=== PATIENT | male | born 1930 | race Caucasian/White ===

== ENCOUNTER 2016-06-10 13:52 | Outpatient (CLI) | payer MEDICARE, OTHER | END 2016-06-10 13:53 | disposition home or self-care (01) | LOC: NAVSJIPCSP 13:52 | PROVIDERS: ATTEND Family Medicine | DX: L03.116 Cellulitis of left lower limb (principal) | CPT/HCPCS: 87070; 87205 ==

== ENCOUNTER 2016-08-08 09:22 | Inpatient (IN) | payer MEDICARE ==
[2016-08-08 09:55] LABS: #Basophils 0.1 thou/uL (0.0-0.2); #Lymphocytes 2.2 thou/uL (1.20-3.40); #Monocytes 0.6 thou/uL (0.11-0.59); #Neutrophils 6.2 thou/uL (1.40-6.50); %Eosinophils 0.3 % (0.0-10.0); %Lymphocytes 24.4 % (21.0-51.0); %Monocytes 6.8 % (0.0-10.0); %Neutrophils 67.5 % (42.0-75.0); Mean Corpuscular HGB CONC 31.5 g/dL (32.0-36.0); Mean Corpuscular Volume 95.1 fl (80.0-94.0); Platelet Count 234 thou/uL (130-400); RBC Distribution Width 14.6 % (11.5-14.5); Red Blood Cell (RBC) Count 5.02 mill/uL (4.70-6.10); White Blood Cell (WBC) Count 9.1 thou/uL (4.8-10.8)
[2016-08-08 10:16] LABS: ALT (SGPT) 33 U/L (0-55); AST (SGOT) 34 U/L (5-34); Albumin 3.5 g/dL (3.4-4.8); Alkaline Phosphatase 70 U/L (40-150); Anion Gap 17 mmol/L (10-20); BUN (Urea Nitrogen) 28 mg/dL (8.4-25.7); Bilirubin, Total 1.1 mg/dL (0.2-1.2); CK (CPK) 29 U/L (30-200); Calc. Creatinine Clearance 0 mL/min (70-130); Calcium 9.8 mg/dL (7.8-10.44); Carbon Dioxide 27 mmol/L (23-31); Chloride 102 mmol/L (98-107); Estimated GFR-MDRD 43; Globulin 4.3 g/dL (2.4-3.5); Glucose 128 mg/dL (83-110); Protein, Total 7.8 g/dL (5.8-8.1); Sodium 141 mmol/L (136-145)
[2016-08-08 10:23] LABS: CKMB 1.8 ng/mL (0-6.6); Troponin I 0.037 ng/mL (< 0.028)
[2016-08-08] MEDS ORDERED: Furosemide 40 MG/4 ML VIAL ONE (11:01)
--- NOTE | 2016-08-08 11:30 | RAD ---
AP VIEW OF CHEST: Date: 08/08/16 INDICATION: Shortness of breath. COMPARISON: Prior exam dated 06/13/16. FINDINGS: There is persistent cardiomegaly. Chronic lung changes are similar. Chronic osseous changes are baldev lar. No pleural effusion or pneumothorax is evident. IMPRESSION: Stable cardiomegaly and chronic lung changes. No definite acute cardiopulmonary abnormality. POS: [facility]
[2016-08-08] MEDS ORDERED: Acetaminophen 500 MG TAB PO PRN ×2 (18:55→20:50)
[2016-08-08] MEDS ORDERED: Carvedilol 25 MG TAB PO SCH ×2 (19:30→21:00)
[2016-08-08] MEDS ORDERED: guaiFENesin ER 600 MG TAB PO PRN (20:50)
[2016-08-08] MEDS: Apixaban 5 MG TAB PO SCH (20:51)
[2016-08-08] MEDS: Atorvastatin Calcium 10 MG TAB PO SCH (20:51)
[2016-08-08] MEDS ORDERED: Apixaban 5 MG TAB PO SCH (21:00)
[2016-08-08] MEDS ORDERED: Furosemide 40 MG/4 ML VIAL SLOW IVP SCH (21:00)
[2016-08-08] MEDS ORDERED: Atorvastatin Calcium 40 MG TAB PO SCH (21:00)
--- NOTE | 2016-08-09 05:21 | HP ---
DATE OF ADMISSION: 08/08/2016 DATE OF HISTORY AND PHYSICAL: 08/08/2016 HISTORY OF PRESENT ILLNESS: Mr. Cote is a very pleasant, 86-year-old, white male that presents to the ER with a several day history of dyspnea on exertion, shortness of breath and just stating that he just cannot catch his breath. He states that over the last several days he has gotten much short of breath, and when he lays down in bed, he cannot rest because he is gasping for breath, he has to sit up. He also states that when he walks, he walks more than 20 feet, he gets very short of breath. Patient was seen in the ER and found to be in atrial fibrillation with RVR. He did bring a list of his medications, but I am not sure if he is taking them all and he is a little bit slow and at times gets very confused. I did see him about 2 weeks after discharge from the rehabilitation to go over all his medicines, although, at that time he forgot his medicines. He did bring them in, he did no t remember, which ones he was taking. I was able to get a list and I added Lasix 20 along with pota ssium 20. At that time, he is supposed to see me for followup, but he has not made it back in yet. Nonetheless, the patient was seen in the ER, was determined to have atrial fibrillation with RVR. He was also short of breath and was started on some IV Lasix and urinated quite a bit. His pulse is down at this time, he states he is breathing much better and he is feeling much better. He states he is not short of breath as he was. PAST MEDICAL HISTORY: Significant for recent history of admission to [facility] with atria l fibrillation with RVR and a stroke. Also, was determined to have some ischemic cardiomyopathy wit h an ejection fraction I believe 35%-40%. Patient has also had: 1. Acute on chronic systolic congestive heart failure. 2. Hypertension. 3. Ischemic cardiomyopathy. 4. Gastroesophageal reflux disease. 5. Cerebrovascular accident due to the embolism, left cerebral artery. 6. Chronic renal disease stage III with a GFR between 30 and 59. 7. Hypercholesterolemia. 8. Benign prostatic hypertrophy without any lower urinary tract symptoms at this time. 9. Osteoporosis. 10. Allergic rhinitis. PAST SURGICAL HISTORY: Reveals patient has had TURP and he had colectomies for some type of infecti on in the distant past. He has had cardiac stents by Dr. Faustin and he had left hip ORIF. Patient's last flu vaccine was 01/17/2016, although, he is not sure if he is up-to-date with his Pne umovax. FAMILY HISTORY: His father at age 76 of congestive heart failure and the patient's mother at the age of 58 of breast cancer. Patient had a sister that at age 77 of coronary artery dis ease. SOCIAL HISTORY: The patient has not been a smoker, he does not drink, he does not use any drugs. Dann montoya is . He has 2 children, but one of his sons has already from HIV. The patient is a retired schneider, has been for about 3 years. Patient has one son who lives in [place]. MEDICATIONS: Include the following, 1. Eliquis 2.5 mg 1 p.o. b.i.d. 2. Enteric coated aspirin 81 mg daily. 3. Lipitor 40 mg each day at bedtime. 4. Benazepril 20 mg p.o. daily. 5. Coreg 12.5 mg twice a day, although the patient was taking half a pill twice a day at home. 6. Lasix 20 mg daily. 7. Potassium chloride 8 mEq daily. 8. Finasteride 5 mg each day. 9. Protonix 40 mg each day. ALLERGIES: The patient has no known drug allergies. CODE STATUS: The patient is a FULL CODE. REVIEW OF SYSTEMS: Reveal the patient not had any fever, chills, not had any night sweats. He just had increasing fatigue and shortness of breath whenever he moves around. He denies any headaches, change in eyes or change in his hearing. Denies any cough, cold, congestion. As far as upper respi ratory problems, he states he does get really short of breath when he moves around or exerts himself at all. He does have real garden and he really cannot even make it out to the garden. He is afrai d to go outside by himself because he is afraid that he will get too weak and would not be able to m subha it back again. He states that he feels his heart jumping all the time and that is not regular l diann it used to be before he had a stroke, before he went to the hospital 2 months ago. He states he has been urinating quite frequently, but he tends to drink more liquids. He has not been on a rest ricted water diet. He states he has some arthritis, but he states his memory is not as good. He ju st cannot remember anything that he needs to do including taking his medications and sometimes he fo rgets to make phone calls to follow up with his doctor's appointments and forgets to take his medica tions. He does have a helper, a electronics engineer, who comes by and who actually tries to organize his medi cine and make sure he does best he can, but he is somewhat mentally challenged. PHYSICAL EXAMINATION: GENERAL: This is a well developed, well nourished, very pleasant, white male, somewhat confused at times, especially by his medications, states he is feeling much better, in no apparent distress at t his time. HEENT: Reveals normocephalic, nontraumatic cranium. Pupils are equal, round and reactive. Nose an d throat are moist. NECK: Supple, without mass, nodes or bruits. He has kind of a fat neck and that we were not able t o appreciate any jugular venous distention at this time. LUNGS: The chest is clear in the upper lobes, some early crackles in the bases still noted. HEART: Revealed a very irregularly irregular rate and rhythm indicative of atrial fibrillation, and when he was in the ER, Dr. Vaca states that he was in RVR. ABDOMEN: Obese, soft, nontender, without organomegaly. Normal bowel sounds are noted. No rebound or guarding is noted. : Deferred. The patient states he has been urinating really a lot since he came from the ER. EXTREMITIES: Reveal trace to +1 edema, he states that it is down significantly from yesterday. He states since he has been peeing a lot, his swelling has gone down. LABORATORY DATA: Reveal his white count is 9100 with hemoglobin 15.0, hematocrit 47.7, platelet cou nt 234,000. Sodium is 141, potassium 5.0, chloride is 102, carbon dioxide 27. His BUN is 28. His creatinine is 1.58, he generally runs between 1.39 and 1.81, so he is actually doing pretty well. He has had leora er enzymes, amylase is up, but his AST is 34 and ALT is 33 at this time. Of note, his troponin is 0 .037. His BNP is 2590. ASSESSMENT: 1. Acute on chronic systolic congestive heart failure. 2. Atrial fibrillation with rapid ventricular response, now is rate controlled, not sure that the p atient has actually been taking his carvedilol, and now, he has been taking a half, he has been spli tting his pills in half, so they last longer. 3. Hypertension. 4. Volume overload. 5. Cardiomyopathy. 6. Hyperlipidemia. 7. Gastroesophageal reflux disease. 8. Benign prostatic hypertrophy. 9. Osteoporosis. 10. Coronary artery disease. 11. Allergic rhinitis. PLAN: 1. We will gradually diurese this patient. We have increased his carvedilol from 6.25 to 12.5. If his blood pressure tolerates it, we will go up to 25 b.i.d. We will follow his serial beta natriur etic peptides. 2. We will continue to treat him clinically and he may need to be admitted to the hospital or event dago transferred to [facility] where his battery filler, Dr. Eduar Faustin practices. Nonetheless, we will continue him in office over the evening and make another decision about what to do tomorrow. I spent over an hour and a half going over the patient's history and physical, medications, etc.
[2016-08-09 05:35] LABS: Band 2 % (5-11); Hemoglobin 14.5 g/dL (14.0-18.0); Lymphocytes 28 % (21-51); MDiff Complete? YES; Mean Corpuscular HGB CONC 32.9 g/dL (32.0-36.0); Mean Corpuscular Hemoglobin 30.8 pg (27.0-31.0); Mean Corpuscular Volume 93.8 fl (80.0-94.0); Mean Platelet Volume 8.1 fL (7.4-10.4); Monocytes 8 % (0-10); Neutrophil 62 % (42-75); PLT Morphology Comment Appears Adequate; Platelet Count 210 thou/uL (130-400); RBC Distribution Width 14.4 % (11.5-14.5); RBC Morphology Normal; Red Blood Cell (RBC) Count 4.69 mill/uL (4.70-6.10); White Blood Cell (WBC) Count 8.7 thou/uL (4.8-10.8)
[2016-08-09 05:42] LABS: Anion Gap 16 mmol/L (10-20); BUN (Urea Nitrogen) 24 mg/dL (8.4-25.7); Calc. Creatinine Clearance 44 mL/min (70-130); Calcium 9.2 mg/dL (7.8-10.44); Carbon Dioxide 28 mmol/L (23-31); Chloride 100 mmol/L (98-107); Estimated GFR-MDRD 49; Glucose 101 mg/dL (83-110); Sodium 140 mmol/L (136-145)
[2016-08-09] MEDS ORDERED: Non-Formulary Item 1 EACH (Multivitamin [Multi-Vitamin Daily] 1 TABLET) PO SCH (09:00)
[2016-08-09] MEDS ORDERED: Finasteride 5 MG TAB PO SCH (09:00)
[2016-08-09] MEDS ORDERED: UBIDECARENONE PO SCH (09:00)
[2016-08-09] MEDS ORDERED: VIT E ACETATE PO SCH (09:00)
[2016-08-09] MEDS ORDERED: Non-Formulary Item 1 EACH (Potassium Chloride [Potassium Chloride] 8 MEQ) PO SCH (09:00)
[2016-08-09] MEDS: Carvedilol 25 MG TAB PO SCH ×2 (09:15→17:38)
[2016-08-09] MEDS: Potassium Chloride 8 MEQ TAB PO SCH (09:16)
[2016-08-09] MEDS: Aspirin 81 mg Enteric Coated Tablet PO SCH (09:16)
[2016-08-09] MEDS: Apixaban 5 MG TAB PO SCH ×2 (09:16→21:10)
[2016-08-09] MEDS: Finasteride 5 MG TAB PO SCH (09:17)
[2016-08-09] MEDS: Multivitamin W/ Minerals 1 TAB PO SCH (09:17)
[2016-08-09] MEDS: Furosemide 20 MG TAB PO SCH (09:17)
[2016-08-09] MEDS: Hydrochlorothiazide 25 MG TAB PO SCH (09:17)
[2016-08-09] MEDS: Atorvastatin Calcium 10 MG TAB PO SCH (21:10)
--- NOTE | 2016-08-09 22:22 | PRG ---
DATE OF SERVICE: 08/09/2016 SUBJECTIVE: Mr. Cote is a very pleasant 86-year-old white male that presented to the ER with signi ficant dyspnea on exertion, shortness of breath, and 2-3 pillow orthopnea. He was given some IV Las ix and seemed to do much better. He was admitted to the hospital and found to have a BNP greater th an 2500. This morning he states he feels about 75% better. States he started to sleep very well last night. Because he still fearing is unable to breathe, but he was propped up in bed. He has no complaints this morning and he says his breakfast was excellent. OBJECTIVE: VITAL SIGNS: Today revealed blood pressure of 119/90, pulse 93, respirations 18, O2 sat 95%, temper ature 97.6. GENERAL: This is a well-developed, well-nourished, very pleasant, obese white male in no apparent d istress at this time. HEENT: Reveals normocephalic, nontraumatic cranium. Pupils are equally round and reactive. Extrao cular movements intact. Nose and throat are slightly dry. NECK: Supple, without masses, nodes or bruits. CHEST: Clear to auscultation. Patient has some minimal rales in the bases that tend to clear with cough. HEART: Irregularly irregular rate and rhythm, indicative of atrial fib. ABDOMEN: Obese, soft, nontender without organomegaly. Normal bowel sounds are noted. No rebound o r guarding is noted. GENITOURINARY: Deferred. EXTREMITIES: Revealed 1+ edema, which is significantly down from yesterday. LABORATORY DATA: This morning revealed a white count down to 8700 with hemoglobin 14.5, hematocrit 44.0, platelet count is 210,000. His electrolytes reveals sodium 140, potassium 4.0, chloride 100, carbon dioxide 28 with a BUN of 24, creatinine 1.38, which is much improved from 1.53 yesterday. Hi s GFR is 43 yesterday and 49 today. His blood sugar this morning is 101. His BNP was down from 259 2 to 2573, which is minimal, but some improvement. ASSESSMENT: 1. [id number] congestive heart failure. 2. Atrial fibrillation with rapid ventricular response in the ER, now is rate controlled. We have increased his carvedilol. 3. Hypertension. 4. Volume overload. 5. Cardiomyopathy. 6. Hyperlipidemia. 7. Gastroesophageal reflux. 8. Benign prostatic hypertrophy. 9. Osteoporosis. 10. Coronary artery disease. 11. Allergic rhinitis. PLAN: 1. Continue to gently diureses the patient. 2. Continue to keep his carvedilol at 12.5 if his blood pressure tolerates it. If he is able incre ase it to 25. 3. Follow him clinically. 4. If the patient deteriorates, we will transfer him to [facility] where his ca rdiologist Dr. Eduar Faustin practices. 5. Continue to follow BNP. 6. Echocardiogram on Thursday.
[2016-08-10 05:22] LABS: Band 8 % (5-11); Eosinophils 2 % (0-10); Hemoglobin 13.9 g/dL (14.0-18.0); Lymphocytes 38 % (21-51); MDiff Complete? YES; Mean Corpuscular HGB CONC 33.9 g/dL (32.0-36.0); Mean Corpuscular Hemoglobin 31.1 pg (27.0-31.0); Mean Corpuscular Volume 91.8 fl (80.0-94.0); Mean Platelet Volume 8.9 fL (7.4-10.4); Monocytes 9 % (0-10); Neutrophil 43 % (42-75); PLT Morphology Comment Appears Adequate; Platelet Count 228 thou/uL (130-400); RBC Morphology Normal; Red Blood Cell (RBC) Count 4.48 mill/uL (4.70-6.10); White Blood Cell (WBC) Count 7.3 thou/uL (4.8-10.8)
[2016-08-10] MEDS: Carvedilol 25 MG TAB PO SCH ×2 (08:20→16:26)
[2016-08-10] MEDS: Potassium Chloride 8 MEQ TAB PO SCH (08:21)
[2016-08-10] MEDS: Aspirin 81 mg Enteric Coated Tablet PO SCH (08:21)
[2016-08-10] MEDS: Apixaban 5 MG TAB PO SCH ×2 (08:21→21:09)
[2016-08-10] MEDS: Multivitamin W/ Minerals 1 TAB PO SCH (08:22)
[2016-08-10] MEDS: Finasteride 5 MG TAB PO SCH (08:22)
[2016-08-10] MEDS: Hydrochlorothiazide 25 MG TAB PO SCH (08:22)
[2016-08-10] MEDS: Furosemide 20 MG TAB PO SCH (08:22)
[2016-08-10] MEDS: Atorvastatin Calcium 10 MG TAB PO SCH (21:09)
--- NOTE | 2016-08-10 22:23 | PRG ---
DATE OF ADMISSION: 08/08/2016 DATE OF PROGRESS NOTE: 08/10/2016 HISTORY OF PRESENT ILLNESS: The patient is a very pleasant younger than stated age 86-year-old whit e male, who unfortunately couple of months ago had a CVA secondary to his atrial fibrillation. He w as eventually seen at rehab stay there at couple of weeks and transferred home. He has been in home for several weeks and started getting some dyspnea on exertion, shortness of breath and 2 to 3 pill ow orthopnea. He was given some IV Lasix and states he is doing much better. His BNP initially was greater than 2500. The patient states he feels 10% better than he did yesterday, which is about 85% at this time. He s till is not sleeping well because it is not his bed. He states he is unable to breath. The patient's son did come by and see him today and states that he is unable to take him home tomorr ow. His caregivers will take him home tomorrow who have to make other arrangements. PHYSICAL EXAMINATION: VITAL SIGNS: Today reveal blood pressure this morning is 120/70, pulse 95, respirations 18, O2 sat 95% on room air, temperature 97.6. GENERAL: He is a well-developed, well-nourished, slightly obese white male in no apparent distress at this time. HEENT: Reveals normocephalic, nontraumatic cranium. The pupils are equally round and reactive. Ex traocular movements intact. Nose and throat are slightly dry. NECK: Supple without masses, nodes, or bruits. LUNGS: Chest is clear to auscultation. No rales, rhonchi or wheezes are heard this morning. The b ases are clear. HEART: Irregularly irregular rate and rhythm. He is still on chronic atrial fib. He is rate contr olled. ABDOMEN: Obese, soft, nontender without organomegaly. Normal bowel sounds are noted. No rebound o r guarding is noted. GENITOURINARY: Deferred. EXTREMITIES: Reveal 1+ to trace edema which is still significantly down. LABORATORY DATA: Laboratory today reveals white count is 7300, hemoglobin 13.9, hematocrit 41.2, an d platelet count is 228,000. Sodium is not done in his labs today. Otherwise revealed BNP of 2030 which is down from his high of 2590. We will repeat that tomorrow. IMPRESSION: 1. Acute on chronic congestive heart failure. 2. Atrial fibrillation with rapid ventricular response in the ER, now rate controlled. 3. Hypertension. 4. Volume overload. 5. Cardiomyopathy. 6. Hyperlipidemia. 7. Gastroesophageal reflux. 8. Benign prostatic hypertrophy. 9. Osteoporosis. 10. Coronary artery disease. 11. Allergic rhinitis. PLAN: 1. Echocardiogram tomorrow morning and then he can be discharged. 2. Continue gentle diuresis. 3. Continue carvedilol 12.5 if his blood pressure tolerates it. 4. Continue to follow clinically. 5. Patient deteriorates, we transferred him to [facility] where Dr. Eduar Faustin , his microsoft crm developer, who will see him. 6. Continue to follow BNP tomorrow. I spent more than 40 minutes again with this patient going over his options with im going to a [facility] home versus home if we can find somebody to take care of him at home. He is not willing to pay a nybody to help him and he does not like to stay in the hospital for several more days.
[2016-08-11 06:48] LABS: #Basophils 0.1 thou/uL (0.0-0.2); #Eosinphils 0.1 thou/uL (0.0-0.7); #Lymphocytes 2.5 thou/uL (1.20-3.40); #Monocytes 0.8 thou/uL (0.11-0.59); #Neutrophils 3.6 thou/uL (1.40-6.50); %Basophils 1.3 % (0.0-1.0); %Eosinophils 1.3 % (0.0-10.0); %Lymphocytes 35.5 % (21.0-51.0); %Monocytes 11.5 % (0.0-10.0); %Neutrophils 50.4 % (42.0-75.0); Hemoglobin 14.5 g/dL (14.0-18.0); Mean Corpuscular HGB CONC 33.1 g/dL (32.0-36.0); Mean Corpuscular Hemoglobin 30.8 pg (27.0-31.0); Mean Corpuscular Volume 92.8 fl (80.0-94.0); Mean Platelet Volume 8.4 fL (7.4-10.4); PLT Morphology Comment Appears Adequate; Platelet Count 246 thou/uL (130-400); RBC Distribution Width 13.9 % (11.5-14.5); RBC Morphology Normal; Red Blood Cell (RBC) Count 4.71 mill/uL (4.70-6.10); White Blood Cell (WBC) Count 7.1 thou/uL (4.8-10.8)
[2016-08-11] MEDS: Hydrochlorothiazide 25 MG TAB PO SCH (08:31)
[2016-08-11] MEDS: Aspirin 81 mg Enteric Coated Tablet PO SCH (08:31)
[2016-08-11] MEDS: Potassium Chloride 8 MEQ TAB PO SCH (08:32)
[2016-08-11] MEDS: Furosemide 20 MG TAB PO SCH (08:32)
[2016-08-11] MEDS: Finasteride 5 MG TAB PO SCH (08:32)
[2016-08-11] MEDS: Apixaban 5 MG TAB PO SCH ×2 (08:32→21:02)
[2016-08-11] MEDS: Carvedilol 25 MG TAB PO SCH ×2 (08:32→17:03)
[2016-08-11] MEDS: Multivitamin W/ Minerals 1 TAB PO SCH (08:32)
--- NOTE | 2016-08-11 10:18 | PRG ---
DATE OF SERVICE: 08/11/2016 HISTORY OF PRESENT ILLNESS: Mr. Cote is a very pleasant 86-year-old white male that unfortunately had a stroke and an acute onset of atrial fibrillation several weeks ago. He was admitted to the [facility] and has done very well. He was discharged and it has been 3-4 weeks. He was seen in [facility] emergency room with shortness of breath and acute onset of acute on chronic systolic congestive h eart failure. He was gently diuresed and his BNP is starting at 2500 today, is down to 1200. He is much improved, states he feels 90% better than when he came in. Unfortunately, his son in [place] cannot get off today. His caregiver that usually brings him home i s out of town and will be back tomorrow, so I did talk with our director of nurses and we will disch arge him tomorrow morning. VITAL SIGNS: Today reveal blood pressure 122/73, pulse 75 to 104, respirations 20-22, O2 sat 94-97% on room air, temperature max is 97.6. LABORATORY: Today reveals white count 7100, hemoglobin 14.5, hematocrit 43.7, platelet count 246,00 0. No significant shift is noted. His BNP has gone from 2590 down to 1234 this morning. We will repeat labs tomorrow. PHYSICAL EXAMINATION: GENERAL: This is a well-developed, well-nourished, obese white male in no apparent distress at this time. HEENT: Reveals normocephalic, nontraumatic cranium. Pupils are equally round and reactive. Extrao cular movements intact. Nose and throat are slightly dry. NECK: Supple, without masses, nodes or bruits. LUNGS: Chest is clear to auscultation. No rales, no rhonchi, no wheezes are heard. Bases are linnea r. He has a little coarse breath sounds, when he coughs that clears. HEART: Reveals an irregularly irregular rate and rhythm and chronic atrial fib. He is rate control led. ABDOMEN: Obese, soft, nontender, without organomegaly. Normal bowel sounds are noted. No rebound or guarding is noted. GENITOURINARY: Deferred. EXTREMITIES: Trace edema today. The patient is awake today. He is 171 pounds. ASSESSMENT: 1. Acute on chronic systolic congestive heart failure. 2. Atrial fibrillation with rapid ventricular response in the ER, now rate controlled. 3. Hypertension. 4. Volume overload, much improved. 5. Cardiomyopathy. 6. Hyperlipidemia. 7. Gastroesophageal reflux disease. 8. Benign prostatic hypertrophy. 9. Osteoporosis. 10. Coronary artery disease without angina. 11. Allergic rhinitis. PLAN: 1. The patient is going to have an echocardiogram today. He is unable to be discharged, there is n o one to pick him up today. We will discharge him in the morning. 2. Continue gentle diuresis. 3. Continue carvedilol. 4. Continue to follow clinically. 5. Will set him up to see Dr. Eduar Faustin later on in the week.
[2016-08-11] MEDS: Atorvastatin Calcium 10 MG TAB PO SCH (21:02)
[2016-08-12 06:32] LABS: Anion Gap 15 mmol/L (10-20); BUN (Urea Nitrogen) 27 mg/dL (8.4-25.7); Calc. Creatinine Clearance 42 mL/min (70-130); Calcium 9.1 mg/dL (7.8-10.44); Carbon Dioxide 27 mmol/L (23-31); Chloride 103 mmol/L (98-107); Estimated GFR-MDRD 48; Glucose 96 mg/dL (83-110); Potassium 3.7 mmol/L (3.5-5.1); Sodium 141 mmol/L (136-145)
[2016-08-12 07:07] LABS: #Basophils 0.1 thou/uL (0.0-0.2); #Eosinphils 0.1 thou/uL (0.0-0.7); #Lymphocytes 2.4 thou/uL (1.20-3.40); #Monocytes 0.7 thou/uL (0.11-0.59); #Neutrophils 3.5 thou/uL (1.40-6.50); %Basophils 1.6 % (0.0-1.0); %Eosinophils 1.5 % (0.0-10.0); %Monocytes 10.7 % (0.0-10.0); %Neutrophils 51.2 % (42.0-75.0); Hemoglobin 14.4 g/dL (14.0-18.0); Mean Corpuscular HGB CONC 33.1 g/dL (32.0-36.0); Mean Corpuscular Hemoglobin 30.8 pg (27.0-31.0); Mean Corpuscular Volume 93.1 fl (80.0-94.0); Mean Platelet Volume 8.8 fL (7.4-10.4); PLT Morphology Comment Appears Adequate; Platelet Count 255 thou/uL (130-400); RBC Distribution Width 14.2 % (11.5-14.5); RBC Morphology Normal; Red Blood Cell (RBC) Count 4.66 mill/uL (4.70-6.10); White Blood Cell (WBC) Count 6.8 thou/uL (4.8-10.8)
[2016-08-12 07:27] VITALS: BP 125/72; TEMP 95.7
[2016-08-12] MEDS: Potassium Chloride 8 MEQ TAB PO SCH (08:00)
[2016-08-12] MEDS: Carvedilol 25 MG TAB PO SCH (08:00)
[2016-08-12] MEDS: Furosemide 20 MG TAB PO SCH (09:16)
[2016-08-12] MEDS: Aspirin 81 mg Enteric Coated Tablet PO SCH (09:16)
[2016-08-12] MEDS: Hydrochlorothiazide 25 MG TAB PO SCH (09:16)
[2016-08-12] MEDS: Multivitamin W/ Minerals 1 TAB PO SCH (09:16)
[2016-08-12] MEDS: Finasteride 5 MG TAB PO SCH (09:16)
[2016-08-12] MEDS: Apixaban 5 MG TAB PO SCH (09:16)
[2016-08-12 10:30] VITALS: BMI 24.6
--- NOTE | 2016-08-12 12:26 | DPRG ---
DATE OF SERVICE: 08/12/2016 SUBJECTIVE: The patient is a very pleasant 86-year-old white male that came to the emergency room l ast week in congestive heart failure. He was slowly diuresed. His carvedilol was increased 12.4 b. i.d. He was not taking Lasix. He was switched from hydrochlorothiazide to Lasix and gradually diur esed. He has actually done very well. He was in atrial fibrillation with RVR when went to the [facility] room and now he is rate controlled. He seems to be doing very well and we have diuresed his v olume overload off. He continues to have an echocardiogram which revealed a 20-25% ejection fractio n which was basically unchanged. Hopefully as he gets a little bit better we can repeat that in 3-4 months and it will be better. He has no complaints today. VITAL SIGNS: Vital signs today reveal blood pressure is 125/72, pulse 69-95, respirations 17-18, O2 sat 92-96% on room air. LABORATORY: Today reveals a white count of 6800, hemoglobin 14.4, hematocrit 43.4, platelet count i s 255,000. No left shift is noted. Electrolytes revealed sodium 141, potassium 3.7, chloride 103, carbon dioxide 27 with a BUN of 27 an d a creatinine of 1.40. BNP is 1424 which is certainly down from 2590. PHYSICAL EXAMINATION: GENERAL: This is a well-developed, well-nourished, very pleasant, obese white male in no apparent d istress at this time. HEENT: Reveals normocephalic, nontraumatic cranium. Pupils are equally round and reactive. Extrao cular movements intact. Nose and throat are slightly dry. NECK: Supple, without masses, nodes or bruits. CHEST: Clear to auscultation, no rales, rhonchi, wheezes or cough is heard. No rales are noted luzma ecially in the bases. HEART: Heart reveals an irregularly irregular rate and rhythm, chronic atrial fib. He is basically rate controlled. ABDOMEN: Abdomen is obese, soft, nontender, without organomegaly, normal bowel sounds are noted. N o rebound or guarding is noted. GENITOURINARY: Deferred. EXTREMITIES: Reveal no clubbing, cyanosis, and no edema is noted today. ASSESSMENT: 1. Acute on chronic congestive systolic heart failure with acute exacerbation secondary to volume o verload, now back to normal. 2. Atrial fibrillation with rapid ventricular response, now rate controlled. 3. Hypertension. 4. Cardiomyopathy with ejection fraction done yesterday at 20:25%. 5. Hyperlipidemia. 6. Gastroesophageal reflux. 7. Benign prostatic hypertrophy. 8. Osteoporosis. 9. Coronary artery disease, without angina. 10. Allergic rhinitis. 11. Confusion and difficulty taking his medications, so at times, noncompliant. PLAN: 1. The patient will be discharged today, has reached maximum hospital benefit. He really would tanja efit from 24-hour care, but he states he is not going to go to the residential, he states he does n ot have the money for a 24-hour care. He has a volunteer person from [employer] that comes by for 2 umesh rs a day. He will have home health and he will continue home health physical therapy and occupation al therapy. He did have an evaluation here at the hospital and he qualifies for both. 2. He will see me in 2 weeks. 3. He is supposed to call Dr. Eduar Faustin's office and get an appointment with Dr. Faustin to [facility] evaluate him here. 4. We will continue to keep him on his Lasix and his potassium to gently diurese him. 5. We will continue to keep his carvedilol 12.5 mg twice a day, hopefully increase that in the futu re if his blood pressure tolerates. DISCHARGE MEDICATIONS: 1. Eliquis or Apixaban 2.5 mg daily. 2. Aspirin 81 mg daily. 3. Atorvastatin 40 mg at bedtime. I have written a prescription for that. 4. Benazepril 20 mg daily. 5. Carvedilol 12.5 mg twice a day with meals. 6. COQ 10 daily. 7. Finasteride or Proscar 5 mg daily. 8. Lasix or furosemide 20 mg daily. 9. Potassium 8 mEq daily. 10. Protonix 40 mg, he can take 2 of the over the counter 20 mg every day. The patient will see me for followup, the patient will see me in approximately 2 weeks. He will sofía ng all of his medications in and we will continue to follow him through home health.
== END 2016-08-12 11:45 | disposition home health service (06) | DRG 291 ==
LOC: NAV ERS 09:22 → NAV ACUTE 12:21
PROVIDERS: ADMIT Family Medicine; ATTEND Family Medicine
DX: I13.0 Hypertensive heart and chronic kidney disease with heart failure and stage 1 through stage 4 chronic kidney disease, or unspecified chronic kidney disease (principal); I50.23 Acute on chronic systolic (congestive) heart failure; I69.351 Hemiplegia and hemiparesis following cerebral infarction affecting right dominant side; I48.91 Unspecified atrial fibrillation; E78.5 Hyperlipidemia, unspecified; K21.9 Gastro-esophageal reflux disease without esophagitis; N40.0 Benign prostatic hyperplasia without lower urinary tract symptoms; M81.0 Age-related osteoporosis without current pathological fracture; I25.10 Atherosclerotic heart disease of native coronary artery without angina pectoris; J30.9 Allergic rhinitis, unspecified; Z91.14 Patient's other noncompliance with medication regimen; R41.0 Disorientation, unspecified; I25.5 Ischemic cardiomyopathy; N18.3 Chronic kidney disease, stage 3 (moderate); E66.9 Obesity, unspecified
CPT/HCPCS: 36415; 71010; 80048; 80053; 82550; 82553; 83880; 84484; 85025; 85379; 93005; 96374; A4216; G8978-GP-CJ; G8979-GP-CI; G8996-GN-CI; G8997-GN-CI; J1940

== ENCOUNTER 2016-10-26 13:27 | Outpatient (CLI) | payer MEDICARE ==
[2016-10-26 16:49] LABS: ALT (SGPT) 18 U/L (8-55); AST (SGOT) 24 U/L (5-34); Albumin 3.8 g/dL (3.4-4.8); Alkaline Phosphatase 73 U/L (40-150); Anion Gap 18 mmol/L (10-20); BUN (Urea Nitrogen) 35 mg/dL (8.4-25.7); Bilirubin, Total 0.7 mg/dL (0.2-1.2); Calc. Creatinine Clearance 0 mL/min (70-130); Calcium 9.7 mg/dL (7.8-10.44); Carbon Dioxide 26 mmol/L (23-31); Chloride 100 mmol/L (98-107); Estimated GFR-MDRD 47; Globulin 3.8 g/dL (2.4-3.5); Glucose 134 mg/dL (83-110); Potassium 4.9 mmol/L (3.5-5.1); Protein, Total 7.6 g/dL (5.8-8.1); Sodium 139 mmol/L (136-145)
== END 2016-10-26 13:28 | disposition home or self-care (01) ==
LOC: NAV LABSP 13:27
PROVIDERS: ATTEND Family Medicine
DX: N18.3 Chronic kidney disease, stage 3 (moderate) (principal)
CPT/HCPCS: 80053

== ENCOUNTER 2017-08-06 08:39 | Emergency (ER) | payer MEDICARE | END 2017-08-06 09:30 | disposition home or self-care (01) | LOC: NAV ERS 08:39 | DX: K40.90 Unilateral inguinal hernia, without obstruction or gangrene, not specified as recurrent (principal); N40.0 Benign prostatic hyperplasia without lower urinary tract symptoms; I48.91 Unspecified atrial fibrillation; I25.10 Atherosclerotic heart disease of native coronary artery without angina pectoris; E78.5 Hyperlipidemia, unspecified; I10 Essential (primary) hypertension; Z79.899 Other long term (current) drug therapy | CPT/HCPCS: 99283 ==

== ENCOUNTER 2018-04-24 01:31 | Emergency (ER) | payer MEDICARE ==
--- NOTE | 2018-04-24 09:55 | CT ---
PRELIMINARY REPORT/[facility]/EMERGENTY AFTER-HOURS PROCEDURE CT Cervical Spine Without Contrast EXAM DATE/TIME: 04/24/2018 2:03 AM CLINICAL HISTORY: 87 years old, male; Injury or trauma; Fall; Initial encounter; Abrasion; Injury date: 04/23/2018; Inj ury details: PT was working in yard around 1600 and tripped / fell onto his right side in the dirt. E ms saw at that time and refused transport and was reporting only right side pain but able to ambulate easily with his walker. PT called again this am due to lower neck pain and "pinching" when turning t he head; Pt on blood thinners, also reports having one drink of alcohol earlier in day. Also pain rig ht lower rib cage in back when takes a deep breath. Tenderness, midline, at level of C7 / T1 TECHNIQUE: Axial computed tomography images of the cervical spine without intravenous contrast. All CT scans at this facility use at least one of these dose optimization techniques: automated exposure control; mA and/or kV adjustment per patient size (includes targeted exams where dose is matched to clinical ashia cation); or iterative reconstruction. Coronal and sagittal reformatted images were created and review ed. COMPARISON: No relevant prior studies available. FINDINGS: Vertebrae: No acute fracture. No subluxation. Discs/Spinal canal/Neural foramina: Multilevel cervical degenerative / spondylitic changes with multi level neural foraminal narrowing. Soft tissues: Unremarkable. Lungs: Lung apices are normal. IMPRESSION: No acute fracture or subluxation. Thank you for allowing us to participate in the care of your patient. Dictated and Authenticated by: Arslan Ivey MD 04/24/2018 3:47 AM Central Time ([place] & [place]) FINAL REPORT EMERGENT AFTER HOURS NONCONTRAST CT CERVICAL SPINE: DATE: 04/24/2018. HISTORY: The patient tripped and fell. Neck injury. The patient states pain in lower neck with pinching sens ation when turning head. TECHNIQUE: Contiguous axial CT images are obtained through the cervical spine from the skull base to the level o f the T2 vertebral body. Sagittal and coronal reformatted images are provided. IMPRESSION: 1. Multilevel degenerative changes seen throughout the cervical spine including facet hypertrophic c hanges. Large bridging osteophytes are seen anteriorly. 2. Fusion of the C2 and C3 vertebral bodies as well as the C5 and C6 vertebral bodies. 3. No acute fracture or subluxation involving the cervical spine. 4. Prevertebral soft tissues are within normal limits. 5. Incomplete visualization of a hypodense nodule right lobe of the thyroid gland measuring 1.8 cm. Thyroid ultrasound may be helpful for further evaluation of the nodule in the right lobe of the thyr oid gland depending on clinical concern. 8. Partial visualization of multiple dental caries involving posterior maxillary and mandibular mola rs. 9. Findings are in agreement with the preliminary report by [facility]. No acute fracture or subluxation is seen. POS: [facility]
--- NOTE | 2018-04-24 09:56 | CT ---
PRELIMINARY REPORT/[facility]/EMERGENTY AFTER-HOURS PROCEDURE CT Head Without Contrast EXAM DATE/TIME: 04/24/2018 2:01 AM CLINICAL HISTORY: 87 years old, male; Injury or trauma; Fall; Initial encounter; Abrasion; Injury date: 04/23/2018; Inj ury details: PT was working in yard around 1600 and tripped / fell onto his right side in the dirt. E ms saw at that time and refused transport and was reporting only right side pain but able to ambulate easily with his walker. PT called again this am due to lower neck pain and "pinching" when turning t he head. Patient on blood thinners, also reports having one drink of alcohol earlier in day TECHNIQUE: Axial computed tomography images of the head/brain without contrast. All CT scans at this facility use at least one of these dose optimization techniques: automated expos ure control; mA and/or kV adjustment per patient size (includes targeted exams where dose is matched to clinical indication); or iterative reconstruction. Coronal and sagittal reformatted images were cr eated and reviewed. COMPARISON: No relevant prior studies available. FINDINGS: Brain: Bilateral basal ganglia old lacunar infarcts. Periventricular white matter areas of decreased density which are likely secondary to chronic ischemia from microvascular change. Diffuse cerebral at rophy. No mass effect or midline shift. No extra-axial fluid collection. Ventricles: Ventricular prominence in this patient with diffuse cerebral atrophy. A normal variant ca vum septum pellucidum is present. Bones/joints: No fracture. Sinuses: Right maxillary sinus with retention cyst. Mastoid air cells: No mastoiditis. Soft tissues: Normal. Vasculature: Arterial calcification. IMPRESSION: 1. No fracture. 2. No acute intracranial findings. 3. Diffuse cerebral atrophy and age-related periventricular white matter changes. Thank you for allowing us to participate in the care of your patient. Dictated and Authenticated by: Arslan Ivey MD 04/24/2018 3:41 AM Central Time ([place] & [place]) FINAL REPORT EMERGENT AFTER HOURS NONCONTRAST CT HEAD: DATE: 04/24/2018. HISTORY: Head injury. Pain in lower neck. COMPARISON: 11/02/2016. IMPRESSION: 1. No acute intracranial abnormality demonstrated. 2. 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 3. Moderate to severe chronic small-vessel ischemic changes which have not progressed from prior exa m. 4. Cerebral and cerebellar volume loss. 5. Mucous retention cyst right maxillary antrum. 6. Findings are in agreement with the preliminary report by [facility]. POS: [facility]
--- NOTE | 2018-04-24 10:09 | RAD ---
RIGHT RIBS FOUR VIEWS CHEST ONE VIEW: History: Fall. Right chest wall injury. FINDINGS: Old healed fracture posterolateral aspect of the right 6th rib. No acute fracture or pneumothorax are apparent. Cardiac silhouette and pulmonary vasculature upper limits of normal. Lungs are slightly hyperinflated . phototypesetting equipment monitor leads overlie the chest. IMPRESSION: No acute traumatic injury is demonstrated. POS: [facility]
== END 2018-04-24 07:20 | disposition home or self-care (01) ==
LOC: NAV ERS 01:31
DX: S13.4XXA Sprain of ligaments of cervical spine, initial encounter (principal); I25.10 Atherosclerotic heart disease of native coronary artery without angina pectoris; E78.5 Hyperlipidemia, unspecified; I10 Essential (primary) hypertension; I48.91 Unspecified atrial fibrillation; Z87.891 Personal history of nicotine dependence; Z86.73 Personal history of transient ischemic attack (TIA), and cerebral infarction without residual deficits; Z79.82 Long term (current) use of aspirin; Z79.891 Long term (current) use of opiate analgesic; W01.0XXA Fall on same level from slipping, tripping and stumbling without subsequent striking against object, initial encounter
CPT/HCPCS: 70450; 72125

== ENCOUNTER 2018-05-14 10:03 | Outpatient (CLI) | payer MEDICARE ==
--- NOTE | 2018-05-14 11:45 | RAD ---
RIGHT HIP TWO VIEWS: 05/14/2018 PROVIDED CLINICAL HISTORY: Right hip pain. FINDINGS: Mild degenerative changes are seen involving the right hip. Right hip joint space appears preserved. No evidence for fracture or other acute osseous abnormality. Vascular calcifications are seen. 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 POS: [facility]
--- NOTE | 2018-05-14 11:54 | RAD ---
RIGHT KNEE FOUR VIEW SERIES: INDICATIONS: Right lower extremity pain. FINDINGS: There is chondrocalcinosis and osteophytosis. Enthesophyte formation is present at the patella. The re is mild suprapatellar joint capsular distention. No fracture or dislocation. IMPRESSION: 1. Evidence of calcium pyrophosphate deposition disease. 2. Mild joint capsular distention. POS: [facility]
--- NOTE | 2018-05-14 12:08 | RAD ---
RADIOGRAPH PELVIS 1 VIEW: DATE: 05/14/2018. HISTORY: An 87-year-old male with persistent posttraumatic right groin pain after a fall on 04/24/2018. FINDINGS: Left metallic hip replacement prosthesis. Pelvic ring appears to be grossly intact with no evidence of acute, displaced fracture. No dislocation. No fracture of the right proximal femur is identified . No collapse of the right femoral head. Mild central-medial right hip joint space narrowing. No s ubcapital osteophytes. IMPRESSION: 1. No evidence of acute or subacute fracture. 2. Status post left hip replacement arthroplasty. POS: [facility]
== END 2018-05-14 10:04 | disposition home or self-care (01) ==
LOC: NAV RAD 10:03
PROVIDERS: ATTEND Specialist
DX: R10.31 Right lower quadrant pain (principal); M16.11 Unilateral primary osteoarthritis, right hip; M25.861 Other specified joint disorders, right knee; Z96.642 Presence of left artificial hip joint
CPT/HCPCS: 72170

== ENCOUNTER 2018-10-15 13:43 | Outpatient (CLI) | payer MEDICARE ==
--- NOTE | 2018-10-15 14:44 | RAD ---
LEFT THUMB RADIOGRAPHS THREE VIEWS: 10/15/2018 PROVIDED CLINICAL HISTORY: Pain without injury. FINDINGS: Prominent osteophyte formation is seen about the thumb IP and MCP joints. Thumb IP and MCP joint spa ce narrowing is noted. There is no evidence for fracture or other acute osseous abnormality. IMPRESSION: Thumb interphalangeal and metacarpophalangeal degenerative change without evidence for an acute abnor mality. POS: [facility]
== END 2018-10-15 13:44 | disposition home or self-care (01) ==
LOC: NAV RAD 13:43
PROVIDERS: ATTEND Nurse Practitioner Adult Health
DX: M79.89 Other specified soft tissue disorders (principal); M18.12 Unilateral primary osteoarthritis of first carpometacarpal joint, left hand